=== PATIENT | male | born 1940 | race Caucasian/White ===

== ENCOUNTER 2023-10-24 18:14 | Emergency (ER) | payer MEDICARE, BC ==
[~2023-10-24] VITALS: Ht 167.6 cm; Wt 85.0 kg
[2023-10-24 18:24] VITALS: TEMP 98.3
[2023-10-24 19:55] VITALS: BP 107/74; PULSE 68
== END 2023-10-24 19:55 | disposition home or self-care (01) ==
LOC: COL.ER 18:14
DX: S09.90XA Unspecified injury of head, initial encounter (principal); S01.111A Laceration without foreign body of right eyelid and periocular area, initial encounter; Z23 Encounter for immunization; W01.198A Fall on same level from slipping, tripping and stumbling with subsequent striking against other object, initial encounter; Y93.01 Activity, walking, marching and hiking; Y92.511 Restaurant or cafe as the place of occurrence of the external cause

== ENCOUNTER 2024-05-30 17:46 | Emergency (ER) | payer MEDICARE, BC ==
[~2024-05-30] VITALS: Ht 167.6 cm; Wt 85.0 kg
[2024-05-30 17:49] VITALS: TEMP 97.7
[2024-05-30 19:30] VITALS: BP 145/87; PULSE 90
== END 2024-05-30 19:30 | disposition home or self-care (01) ==
LOC: COL.ER 17:46
DX: S01.21XA Laceration without foreign body of nose, initial encounter (principal); S01.511A Laceration without foreign body of lip, initial encounter; W01.0XXA Fall on same level from slipping, tripping and stumbling without subsequent striking against object, initial encounter; Y93.01 Activity, walking, marching and hiking; Y92.39 Other specified sports and athletic area as the place of occurrence of the external cause